=== PATIENT | male | born 2000 | race Hispanic/Latino ===

== ENCOUNTER 2021-02-14 23:29 | Emergency (ER) | payer OTHER ==
[~2021-02-14 23:29] MED LIST: Iopamidol-370 76% 500 ML 1 ML ONE
[2021-02-15] MEDS ORDERED: Ondansetron ODT 4 MG TAB ONE (01:28)
== END 2021-02-15 01:46 | disposition home or self-care (01) ==
LOC: ERS 23:29
DX: G43.909 Migraine, unspecified, not intractable, without status migrainosus (principal); F17.200 Nicotine dependence, unspecified, uncomplicated
CPT/HCPCS: 70496; 70498; Q0162; Q9967